=== PATIENT | male | born 1985 | race Caucasian/White ===

== ENCOUNTER 2024-04-02 20:49 | Emergency (ER) | payer SELFPAY ==
[~2024-04-02] VITALS: Ht 177.8 cm; Wt 160.5 kg
[~2024-04-02 20:49] MED LIST: CIPRO 500MG TA500 MG PO; FLOMAX0.4 MG PO; KETOROLAC TROME10 MG PO
[2024-04-02] MEDS ORDERED: WELLBUTRIN XL300 M1 PO (21:17)
[2024-04-02] MEDS ORDERED: CYCLOBENZAPRINE10 M1 PO (21:59)
[2024-04-02] MEDS ORDERED: KETOROLAC10 MG PO (21:59)
[2024-04-02] MEDS ORDERED: Orphenadrine 60 MG/2ML AMP IM ONE (22:00)
[2024-04-02] MEDS ORDERED: Ketorolac 30 MG/ML VIAL IM ONE (22:00)
[2024-04-02 22:14] VITALS: BP 167/132
== END 2024-04-02 22:14 | disposition home or self-care (01) ==
LOC: ED 20:49
DX: M62.830 Muscle spasm of back (principal)
CPT/HCPCS: J1885; J2360